=== PATIENT | male | born 1950 | race Caucasian/White ===

== ENCOUNTER 2016-09-02 15:41 | Observation (INO) | payer MEDICARE, OTHER ==
[2016-09-02] VITALS (7 sets, daily range): BP systolic 111–139; BP diastolic 66–83; PULSE 74–85; RESP 16–20; TEMP 98–98.1; O2SAT 96–99
[~2016-09-02] VITALS: Ht 182.9 cm; Wt 90.0 kg
--- NOTE | 2016-09-02 15:48 | PD ---
HPI Chief Complaint: Syncope/Near-Syncope Time Seen by Provider: 15:48 Travel History International Travel<30 days: No Contact w/Intl Traveler<30days: No Traveled to known affect area: No History of Present Illness HPI 66-year-old male with no significant medical history presents to the emergency department for evaluation. Patient states he is visiting from [place]. He was fishing with his brother when he developed a feeling of nauseousness then states he did not feel well and became agitated. He asked his brother to take him back to where they're staying and in the car he passed out. He did not strike his head. Patient states he has had nothing ever like this in the past. Denies any recent illnesses, fever, or chills. No chest pain or tightness. No difficulty breathing. Currently he states he feels much better. He has no cardiac history. He was fishing since 11 AM and a dark long sleeve shirt with minimal water intake. He has no other symptoms to report this time. [facility] Past Medical History Medical History: Denies Significant Hx Social History Alcohol Use: No Tobacco Use: No Substance Use: No Allergies-Medications (Allergen,Severity, Reaction): Coded Allergies: No Known Allergies (Unverified , 09/02/16) Review of Systems Except as stated in HPI: all other systems reviewed are Neg Physical Exam Narrative GENERAL: Well-nourished male patient, sitting up in the stretcher, in no acute distress SKIN: Warm and dry. HEAD: Atraumatic. Normocephalic. EYES: Pupils equal and round. No scleral icterus. No injection or drainage. ENT: No nasal bleeding or discharge. Mucous membranes pink and moist. NECK: Trachea midline. No JVD. CARDIOVASCULAR: Regular rate and rhythm. No murmur appreciated. RESPIRATORY: No accessory muscle use. Clear to auscultation. Breath sounds equal bilaterally. GASTROINTESTINAL: Abdomen soft, non-tender, nondistended. Hepatic and splenic margins not palpable. MUSCULOSKELETAL: No obvious deformities. No clubbing. No cyanosis. No edema. NEUROLOGICAL: Awake and alert. No obvious cranial nerve deficits. Motor grossly within normal limits. Normal speech. PSYCHIATRIC: Appropriate mood and affect; insight and judgment normal. Data Data Last Documented VS Vital Signs Date Time Temp Pulse Resp B/P Pulse Ox O2 Delivery O2 Flow Rate FiO2 09/02/16 17:00 76 17 119/66 96 Room Air 09/02/16 15:46 98.0 Orders Electrocardiogram (09/02/16 15:47) Ckmb (Isoenzyme) Profile (09/02/16 15:47) Complete Blood Count With Diff (09/02/16 15:47) Comprehensive Metabolic Panel (09/02/16 15:47) Magnesium (Mg) (09/02/16 15:47) Prothrombin Time / Inr (Pt) (09/02/16 15:47) Act Partial Throm Time (Ptt) (09/02/16 15:47) Troponin I (09/02/16 15:47) Lipase (09/02/16 15:47) Chest, Single Ap (09/02/16 15:47) Ecg Monitoring (09/02/16 15:47) Bilateral Bp Monitoring (09/02/16 15:47) Iv Access Insert/Monitor (09/02/16 15:47) Oximetry (09/02/16 15:47) Oxygen Administration (09/02/16 15:47) Aspirin Chew (Aspirin Chew) (09/02/16 16:00) Sodium Chloride 0.9% Flush (Ns Flush) (09/02/16 16:00) Ct Brain W/O Iv Contrast(Rout) (09/02/16 ) CKMB (09/02/16 15:45) CKMB% (09/02/16 15:45) Admit Order (Ed Use Only) (09/02/16 17:53) Labs Laboratory Tests Test 09/02/16 15:45 White Blood Count 4.9 TH/MM3 Red Blood Count 4.30 MIL/MM3 Hemoglobin 12.5 GM/DL Hematocrit 36.8 % Mean Corpuscular Volume 85.7 FL Mean Corpuscular Hemoglobin 29.0 PG Mean Corpuscular Hemoglobin 33.8 % Concent Red Cell Distribution Width 12.9 % Platelet Count 196 TH/MM3 Mean Platelet Volume 8.7 FL Neutrophils (%) (Auto) 52.6 % Lymphocytes (%) (Auto) 33.8 % Monocytes (%) (Auto) 10.0 % Eosinophils (%) (Auto) 2.8 % Basophils (%) (Auto) 0.8 % Neutrophils # (Auto) 2.6 TH/MM3 Lymphocytes # (Auto) 1.7 TH/MM3 Monocytes # (Auto) 0.5 TH/MM3 Eosinophils # (Auto) 0.1 TH/MM3 Basophils # (Auto) 0.0 TH/MM3 CBC Comment DIFF FINAL Differential Comment Prothrombin Time 10.4 SEC Prothromb Time International 0.9 RATIO Ratio Activated Partial 19.6 SEC Thromboplast Time Sodium Level 133 MEQ/L Potassium Level 3.9 MEQ/L Chloride Level 102 MEQ/L Carbon Dioxide Level 21.7 MEQ/L Anion Gap 9 MEQ/L Blood Urea Nitrogen 20 MG/DL Creatinine 0.94 MG/DL Estimat Glomerular Filtration 80 ML/MIN Rate Random Glucose 125 MG/DL Calcium Level 7.9 MG/DL Magnesium Level 2.0 MG/DL Total Bilirubin 0.3 MG/DL Aspartate Amino Transf 30 U/L (AST/SGOT) Alanine Aminotransferase 56 U/L (ALT/SGPT) Alkaline Phosphatase 65 U/L Total Creatine Kinase 133 U/L Creatine Kinase MB 1.3 NG/ML Troponin I LESS THAN 0.02 NG/ML Total Protein 6.3 GM/DL Albumin 3.3 GM/DL Lipase 183 U/L MDM Medical Decision Making Medical Screen Exam Complete: Yes Emergency Medical Condition: Yes Medical Record Reviewed: Yes Differential Diagnosis Heat stroke versus ACS versus electrolyte abnormality versus dehydration versus syncope versus near-syncope Narrative Course 66-year-old male presents to the emergency department for evaluation. Patient appears without distress. EKG is NSR without ST elevation or depression; reviewed by my attending physician. Patient is pain free and symptom free at this time. CBC is with mild anemia 12.5, otherwise without acute concern. BMP is with mild hyponatremia 133. BUN is 20. Troponin is less than 0.02. Last Impressions Chest X-Ray 09/02/16 1547 Signed Impressions: Service Date/Time: Friday, September 02, 2016 16:07 - CONCLUSION: Minimal left basilar atelectatic changes. Lungs are otherwise clear. Jaime Gutierrez MD Head CT 09/02/16 0000 Signed Impressions: Service Date/Time: Friday, September 02, 2016 16:59 - CONCLUSION: 1. Minimal periventricular small vessel ischemic demyelination. 2. Otherwise negative. Jaime Gutierrez MD I discussed the findings with the patient. I have also discussed him with my attending physician Dr. Montero who agrees with observation admission for further evaluation a syncopal workup. I discussed the patient Dr. Irvin. Patient will be admitted to observation to [facility] service. Diagnosis Primary Impression: Syncope Qualified Code: R55 - Syncope, unspecified syncope type Admitting Information Admitting Physician Requests: Observation Condition: Stable Frances Medina Sep 02, 2016 15:48
[2016-09-02] MEDS ORDERED: ASPIRIN 81 MG CHEW TAB PO ONE (16:00)
[2016-09-02] MEDS ORDERED: SODIUM CHLORIDE 0.9% FLUSH 10 ML FLUSH IVF PRN (16:00)
--- NOTE | 2016-09-02 16:13 | RADRPT ---
EXAM DATE/TIME: 09/02/2016 16:07 [facility] COMPARISON: No previous studies available for comparison. INDICATIONS : Chest pain. MEDICAL HISTORY : None. SURGICAL HISTORY : None. ENCOUNTER: Initial ACUITY: 1 day PAIN SCORE: 3/10 LOCATION: Bilateral chest FINDINGS: A single view of the chest demonstrates the lungs to be symmetrically aerated without evidence of mas s, infiltrate or effusion. Minimal atelectasis of the left hemidiaphragm. The cardiomediastinal cont ours are unremarkable. Osseous structures are intact. CONCLUSION: Minimal left basilar atelectatic changes. Lungs are otherwise clear. Jaime Gutierrez MD on September 02, 2016 at 16:11 Board Certified Radiologist. This report was verified electronically.
[2016-09-02 16:19] LABS: AUTOMATED NEUTROPHIL # 2.6 TH/MM3 (1.8-7.7); BASOPHIL % 0.8 % (0.0-2.0); EOSINOPHIL # 0.1 TH/MM3 (0-0.4); EOSINOPHIL % 2.8 % (0.0-4.0); HEMATOCRIT 36.8 % (39.0-51.0); HEMO FLAGS DIFF FINAL; LYMPH % 33.8 % (9.0-44.0); LYMPHOCYTE # 1.7 TH/MM3 (1.0-4.8); MEAN CELL VOLUME 85.7 FL (80.0-100.0); MEAN CORPUSCULAR HGB CONC 33.8 % (32.0-36.0); NEUT % 52.6 % (16.0-70.0); PLATELET COUNT 196 TH/MM3 (150-450); RED CELL DISTRIBUTION WIDTH 12.9 % (11.6-17.2); WHITE BLOOD COUNT 4.9 TH/MM3 (4.0-11.0)
[2016-09-02 16:30] LABS: ALT (GPT) 56 U/L (12-78); ANION GAP 9 MEQ/L (5-15); AST (GOT) 30 U/L (15-37); BICARBONATE 21.7 MEQ/L (21.0-32.0); BLOOD UREA NITROGEN 20 MG/DL (7-18); CHLORIDE 102 MEQ/L (98-107); GLOMERULAR FILTRATION RATE 80 ML/MIN (>89); POTASSIUM 3.9 MEQ/L (3.5-5.1); SODIUM (NA) 133 MEQ/L (136-145)
[2016-09-02 16:34] LABS: ALKALINE PHOSPHATASE 65 U/L (45-117); CREATINE KINASE 133 U/L (39-308); TOTAL BILIRUBIN ADULT 0.3 MG/DL (0.2-1.0)
[2016-09-02 16:38] LABS: APTT (PATIENT) 19.6 SEC (24.3-30.1); INTERNATIONAL NORMALIZED RATIO 0.9 RATIO; PROTHROMBIN TIME - PATIENT 10.4 SEC (9.8-11.6)
[2016-09-02 16:46] LABS: CKMB 1.3 NG/ML (0.5-3.6)
--- NOTE | 2016-09-02 17:30 | RADRPT ---
EXAM DATE/TIME: 09/02/2016 16:59 [facility] COMPARISON: No previous studies available for comparison. INDICATIONS : Syncopal episode today. RADIATION DOSE: 44.77 CTDIvol (mGy) MEDICAL HISTORY : None SURGICAL HISTORY : None. ENCOUNTER: Initial ACUITY: 1 day PAIN SCALE: 0/10 LOCATION: cranial TECHNIQUE: Multiple contiguous axial images were obtained of the head. Using automated exposure control and adj ustment of the mA and/or kV according to patient size, radiation dose was kept as low as reasonably a chievable to obtain optimal diagnostic quality images. FINDINGS: CEREBRUM: The ventricles are normal for age. Minimal periventricular small vessel ischemic demyelination predo minantly around the frontal horns of the lateral ventricles. No evidence of midline shift, mass lesio n, hemorrhage or acute infarction. No extra-axial fluid collections are seen. POSTERIOR FOSSA: The cerebellum and brainstem are intact. The 4th ventricle is midline. The cerebellopontine angle i s unremarkable. EXTRACRANIAL: The visualized portion of the orbits is intact. SKULL: The calvaria is intact. No evidence of skull fracture. CONCLUSION: 1. Minimal periventricular small vessel ischemic demyelination. 2. Otherwise negative. Jaime Gutierrez MD on September 02, 2016 at 17:28 Board Certified Radiologist. This report was verified electronically.
[2016-09-02] MEDS ORDERED: MAGNESIUM HYDROXIDE SUSP 30 ML CUP PO PRN (18:00)
[2016-09-02] MEDS ORDERED: SODIUM CHLORIDE 0.9% FLUSH 10 ML FLUSH IV FLUSH PRN (18:00)
[2016-09-02] MEDS ORDERED: NALOXONE HCL 0.4 MG/ML AMP IV PRN (18:00)
[2016-09-02] MEDS ORDERED: ACETAMINOPHEN 325 MG TAB PO PRN (18:00)
[2016-09-02] MEDS ORDERED: ONDANSETRON HCL 4 MG/2 ML VIAL IVP PRN (18:00)
[2016-09-02] MEDS: SODIUM CHLOR 0.9% 1000 ML INJ 1,000 ML IV SCH (18:11)
--- NOTE | 2016-09-02 18:32 | HHI.HP ---
[facility] Ad[facility] Diagnosis Syncope Diagnoses: Chief Complaint: Syncope Travel History International Travel<30 Days: No Contact w/Intl Traveler <30 Da: No Traveled to Known Affected Are: No History of Present Illness Patient is a 66-year-old white male with no significant past medical history who came in to the hospital for evaluation after episode of "passing out." Patient states that they were visiting from [place]. At 11:00 this morning they went to the beach and was fishing with his brother. At around, 4PM states that he felt tired, and his stomach felt "queasy", he decided to go back to the car, his brother followed him back and noted that he passed out. As per his brother, he did not hit his head, approximately passed out for 30 seconds. He woke up and EMS noted he was sweating. During the time that the patient was tired and complaining of an upset stomach, he denies any nausea or vomiting. He denies any chest pain, palpitations. He is just reporting that he is tired. Denies taking any alcohol, states he's been drinking water. Patient also states that he is currently taking antibiotics for sinus infection. He does not remember the name of the antibiotic but it sounds like either azithromycin or Augmentin. States he is mcc through with that, he is to complete for 10 days, he started taking it last Wednesday. On exam, patient states he feels a lot better. Denies pain and discomfort. Denies SOB/ dyspnea. Denies chest pain, palpitations, headaches, dizziness. Denies fevers, chills, n/v/d. Labs reviewed. Mild normocytic normochromic anemia hemoglobin 12.5/hematocrit 36.8, RBC 4.30. CMP showed hyponatremia sodium 133, BUN 20, EGFR 80, glucose 125, calcium 7.9. First troponin less than 0.02. Total protein 6.3, albumin 3.3. Chest x-ray showed minimal left basilar atelectatic changes. Lungs are otherwise clear. CT of the head showed minimal periventricular small vessel ischemic demyelination. Otherwise negative. Review of Systems Except as stated in HPI: all other systems reviewed are Neg Past Family Social History Past Medical History None Past Surgical History Appendectomy Hernia repair Reported Medications None Allergies: Coded Allergies: No Known Allergies (Unverified , 09/02/16) Active Ordered Medications Current Medications Medications (Trade) Dose Ordered Sig/Slade Route Start Time Stop Time Status Last Admin Sodium Chloride 2 ml 2 ml UNSCH PRN IVF 09/02/16 16:00 09/02/16 16:13 (NS 1000 ml Inj) 1,000 ml @ 100 mls/hr Q10H IV 09/02/16 17:54 (NS Flush) 2 ml UNSCH PRN IV FLUSH 09/02/16 18:00 (NS Flush) 2 ml BID IV FLUSH 09/02/16 21:00 (Tylenol) 650 mg Q4H PRN PO 09/02/16 18:00 (Zofran Inj) 4 mg Q6H PRN IVP 09/02/16 18:00 (Milk Of Magnesia Liq) 30 ml Q12H PRN PO 09/02/16 18:00 (Narcan Inj) 0.4 mg UNSCH PRN IV 09/02/16 18:00 Family History Denies any significant family medical history Social History Denies alcohol use Denies tobacco use Denies illicit drug use Physical Exam Vital Signs Vital Signs Date Time Temp Pulse Resp B/P Pulse Ox O2 Delivery O2 Flow Rate FiO2 09/02/16 17:00 76 17 119/66 96 Room Air 09/02/16 16:05 16 98 Room Air 09/02/16 16:04 16 99 Room Air 09/02/16 16:04 Room Air 09/02/16 16:00 82 20 129/77 96 Room Air 09/02/16 15:46 98.0 85 16 125/74 96 Physical Exam GENERAL: This is a well-nourished, well-developed patient, in no apparent distress. SKIN: No rashes, ecchymoses or lesions. Cool and dry. HEAD: Atraumatic. Normocephalic. No temporal or scalp tenderness. EYES: Pupils equal round and reactive. Extraocular motions intact. No scleral icterus. No injection or drainage. ENT: Nose without bleeding. Throat without erythema. Uvula midline. Airway patent. NECK: Trachea midline. No JVD or lymphadenopathy. Supple, nontender, no meningeal signs. CARDIOVASCULAR: Regular rate and rhythm without murmurs, gallops, or rubs. RESPIRATORY: Clear to auscultation. Breath sounds equal bilaterally. No wheezes , rales, or rhonchi. GASTROINTESTINAL: Abdomen soft, non-tender, nondistended. BS active x4. MUSCULOSKELETAL: Extremities without clubbing, cyanosis, or edema. NEUROLOGICAL: Awake and alert. Motor and sensory grossly within normal limits. Normal speech. Laboratory Laboratory Tests Test 09/02/16 15:45 White Blood Count 4.9 Red Blood Count 4.30 Hemoglobin 12.5 Hematocrit 36.8 Mean Corpuscular Volume 85.7 Mean Corpuscular Hemoglobin 29.0 Mean Corpuscular Hemoglobin 33.8 Concent Red Cell Distribution Width 12.9 Platelet Count 196 Mean Platelet Volume 8.7 Neutrophils (%) (Auto) 52.6 Lymphocytes (%) (Auto) 33.8 Monocytes (%) (Auto) 10.0 Eosinophils (%) (Auto) 2.8 Basophils (%) (Auto) 0.8 Neutrophils # (Auto) 2.6 Lymphocytes # (Auto) 1.7 Monocytes # (Auto) 0.5 Eosinophils # (Auto) 0.1 Basophils # (Auto) 0.0 CBC Comment DIFF FINAL Differential Comment Prothrombin Time 10.4 Prothromb Time International 0.9 Ratio Activated Partial 19.6 Thromboplast Time Sodium Level 133 Potassium Level 3.9 Chloride Level 102 Carbon Dioxide Level 21.7 Anion Gap 9 Blood Urea Nitrogen 20 Creatinine 0.94 Estimat Glomerular Filtration 80 Rate Random Glucose 125 Calcium Level 7.9 Magnesium Level 2.0 Total Bilirubin 0.3 Aspartate Amino Transf 30 (AST/SGOT) Alanine Aminotransferase 56 (ALT/SGPT) Alkaline Phosphatase 65 Total Creatine Kinase 133 Creatine Kinase MB 1.3 Troponin I LESS THAN 0.02 Total Protein 6.3 Albumin 3.3 Lipase 183 Result Diagram: 09/02/16 1545 09/02/16 1545 Imaging Last Impressions Chest X-Ray 09/02/16 1547 Signed Impressions: Service Date/Time: Friday, September 02, 2016 16:07 - CONCLUSION: Minimal left basilar atelectatic changes. Lungs are otherwise clear. Jaime Gutierrez MD Head CT 09/02/16 0000 Signed Impressions: Service Date/Time: Friday, September 02, 2016 16:59 - CONCLUSION: 1. Minimal periventricular small vessel ischemic demyelination. 2. Otherwise negative. Jaime Gutierrez MD Assessment and Plan Problem List: (1) Syncope ICD Code: R55 Status: Acute Assessment and Plan Patient is a 66-year-old white male with no significant past medical history who came in to the hospital for evaluation after episode of "passing out." Patient states that they were visiting from [place]. At 11:00 this morning they went to the beach and was fishing with his brother. At around, 4PM states that he felt tired, and his stomach felt "queasy", he decided to go back to the car, his brother followed him back and noted that he passed out. As per his brother, he did not hit his head, approximately passed out for 30 seconds. He woke up and EMS noted he was sweating. During the time that the patient was tired and complaining of an upset stomach, he denies any nausea or vomiting. He denies any chest pain, palpitations. He is just reporting that he is tired. Denies taking any alcohol, states he's been drinking water. Patient also states that he is currently taking antibiotics for sinus infection. He does not remember the name of the antibiotic but it sounds like either azithromycin or Augmentin. States he is mcc through with that, he is to complete for 10 days, he started taking it last Wednesday. Syncope R/O ACS - EKG reviewed negative for QT prolongation, sinus rhythm heart rate 81 - Chest x-ray showed minimal left basilar atelectatic changes. Lungs are otherwise clear. - CT of the head showed minimal periventricular small vessel ischemic demyelination. Otherwise negative. - Check serial troponin - Check serial EKG - Check carotid ultrasound - Check orthostatic BP - Telemetry use - Echo cardiogram ordered - Will consult departmental secretary if syncopal episode recurrence during hospitalization - Risk for fall. Normocytic normochromic anemia - Monitor H&H Hyponatremia Mild Dehydration - Repeat BMP tomorrow - IV Fluid NS 100ML/ Hr DVT prop SCDs Written by Sandhya Andres, acting as scribe for Dr. Irvin on 09/02/16 at 18:31. All or portions of this note were transcribed by FABY Gregory . I, Dr. Pan Irvin personally performed the history, physical exam, and medical decision making; and confirmed the accuracy of the information in the transcribed note. Authenticated by Dr. Pan Irvin on 09/03/16 at 00:24. Code Status Full code Discussed Condition With Patient, brother, nursing, ED attending Problem Qualifiers (1) Syncope: Qualified Code: R55 - Syncope, unspecified syncope type Sandhya De La Paz Sep 02, 2016 18:32 Allie Irvin DO Sep 03, 2016 00:25
--- NOTE | 2016-09-02 20:19 | RADRPT ---
EXAM DATE/TIME: 09/02/2016 19:14 [facility] COMPARISON: No previous studies available for comparison. INDICATIONS : Syncope. MEDICAL HISTORY : Nausea. SURGICAL HISTORY : Appendectomy. Hernia repair. ENCOUNTER: Initial ACUITY: 1 day PAIN SCORE: 0/10 LOCATION: Bilateral neck PEAK SYSTOLIC VELOCITIES (cm/sec): ICA/CCA RATIO: Right: 0.9 Left: 1.1 ICA: Right: 88 Left: 102 CCA: Right: 94 Left: 92 ECA: Right: 87 Left: 94 VERTEBRAL: Right: 67 antegrade Left: 61 antegrade Elevated flow velocities and ICA/CCA ratios have been found to correlate with increased degrees of vessel stenosis, calculated as percentage of diameter relative to a normal segment of distal ICA/CCA FINDINGS: Antegrade flow is seen in both vertebral arteries. There is mild atherosclerotic plaquing at the orig in of both ICAs without any significant stenosis. CONCLUSION: No evidence for hemodynamically significant stenosis. Genoveva Hayes MD on September 02, 2016 at 20:17 Board Certified Radiologist. This report was verified electronically.
[2016-09-02] MEDS: SODIUM CHLORIDE 0.9% FLUSH 10 ML FLUSH IV FLUSH SCH (21:00)
[2016-09-03] MEDS: SODIUM CHLOR 0.9% 1000 ML INJ 1,000 ML IV SCH ×2 (03:37→13:54)
[2016-09-03 04:54] VITALS: BP 133/77; PULSE 81; RESP 18; TEMP 97.8; O2SAT 97
[2016-09-03 06:13] LABS: AUTOMATED NEUTROPHIL # 2.1 TH/MM3 (1.8-7.7); BASOPHIL % 0.6 % (0.0-2.0); EOSINOPHIL # 0.3 TH/MM3 (0-0.4); EOSINOPHIL % 5.4 % (0.0-4.0); HEMATOCRIT 36.8 % (39.0-51.0); HEMO FLAGS DIFF FINAL; LYMPH % 35.9 % (9.0-44.0); LYMPHOCYTE # 1.7 TH/MM3 (1.0-4.8); MEAN CELL VOLUME 85.8 FL (80.0-100.0); MEAN CORPUSCULAR HEMOGLOBIN 29.1 PG (27.0-34.0); MEAN CORPUSCULAR HGB CONC 33.9 % (32.0-36.0); MONO % 14.2 % (0.0-8.0); NEUT % 43.9 % (16.0-70.0); PLATELET COUNT 186 TH/MM3 (150-450); RED BLOOD COUNT 4.29 MIL/MM3 (4.50-5.90); RED CELL DISTRIBUTION WIDTH 12.9 % (11.6-17.2); WHITE BLOOD COUNT 4.9 TH/MM3 (4.0-11.0)
[2016-09-03 06:33] LABS: BICARBONATE 25.7 MEQ/L (21.0-32.0); POTASSIUM 4.4 MEQ/L (3.5-5.1)
[2016-09-03 07:14] VITALS: BP 132/77; PULSE 76; RESP 17; TEMP 96.4; O2SAT 96
[2016-09-03 08:18] VITALS: BP_SYST 145; BP_SYST 150; BP_DIAS 87; BP_DIAS 89
[2016-09-03 08:30] VITALS: PULSE 69
[2016-09-03] MEDS: SODIUM CHLORIDE 0.9% FLUSH 10 ML FLUSH IV FLUSH SCH (08:44)
[2016-09-03] MEDS ORDERED: INFLUENZA VIRUS VACCINE (QUADRIVALENT) 0.5 ML SYR IM ONE (10:00)
[2016-09-03] MEDS ORDERED: PNEUMOCOCCAL POLYVALENT INJ 25 MCG/0.5 ML SYR IM ONE (10:00)
--- NOTE | 2016-09-03 10:40 | HHI.PR ---
Subjective Remarks Follow up for syncope. The patient reports feeling back to normal today. He denies any medical complaints including no lightheadedness, dizziness, headache , chest pain, shortness of breath, or abdominal complaints. He's tolerating oral intake. Urinating well. Awaiting echo results. Objective Vitals Vital Signs Date Time Temp Pulse Resp B/P Pulse Ox O2 Delivery O2 Flow Rate FiO2 09/03/16 08:18 145/89 150/87 09/03/16 07:14 96.4 76 17 132/77 96 09/03/16 04:54 97.8 81 18 133/77 97 09/02/16 23:51 98.1 84 18 139/83 97 09/02/16 23:30 74 09/02/16 19:00 74 17 111/67 98 Room Air 09/02/16 17:00 76 17 119/66 96 Room Air 09/02/16 16:05 16 98 Room Air 09/02/16 16:04 16 99 Room Air 09/02/16 16:04 Room Air 09/02/16 16:00 82 20 129/77 96 Room Air 09/02/16 15:46 98.0 85 16 125/74 96 I/O 09/02/16 09/02/16 09/02/16 09/03/16 09/03/16 09/03/16 07:00 15:00 23:00 07:00 15:00 23:00 Intake Total 915 ml Output Total 800 ml Balance 115 ml Intake IV Total 915 ml Output Urine Total 800 ml Result Diagram: 09/03/16 0455 09/03/16 0455 Imaging Last Impressions Chest X-Ray 09/02/16 1547 Signed Impressions: Service Date/Time: Friday, September 02, 2016 16:07 - CONCLUSION: Minimal left basilar atelectatic changes. Lungs are otherwise clear. Jaime Gutierrez MD Head CT 09/02/16 0000 Signed Impressions: Service Date/Time: Friday, September 02, 2016 16:59 - CONCLUSION: 1. Minimal periventricular small vessel ischemic demyelination. 2. Otherwise negative. Jaime Gutierrez MD Carotid Artery Ultrasound 09/02/16 0000 Signed Impressions: Service Date/Time: Friday, September 02, 2016 19:14 - CONCLUSION: No evidence for hemodynamically significant stenosis. Genoveva Hayes MD Objective Remarks GENERAL: Well-developed, well-nourished male patient in NAD. Standing at bedside. SKIN: Warm and dry. HEAD: Atraumatic. Normocephalic. EYES: Pupils equal and round. No scleral icterus. No injection or drainage. ENT: No nasal bleeding or discharge. Mucous membranes pink and moist. NECK: Trachea midline. CARDIOVASCULAR: Regular rate and rhythm. No murmur appreciated. RESPIRATORY: No accessory muscle use. Clear to auscultation. Breath sounds equal bilaterally. GASTROINTESTINAL: Abdomen soft, non-tender, nondistended. Hepatic and splenic margins not palpable. MUSCULOSKELETAL: Extremities without clubbing, cyanosis, or edema. No obvious deformities. NEUROLOGICAL: Awake and alert. No obvious cranial nerve deficits. Motor grossly within normal limits. 5/5 muscle strength in the arms and legs. Normal speech. PSYCHIATRIC: Appropriate mood and affect; insight and judgment normal. Medications and IVs Current Medications Medications (Trade) Dose Ordered Sig/Slade Route Start Time Stop Time Status Last Admin (NS 1000 ml Inj) 1,000 ml @ 100 mls/hr Q10H IV 09/02/16 17:54 09/03/16 03:37 (NS Flush) 2 ml UNSCH PRN IV FLUSH 09/02/16 18:00 (NS Flush) 2 ml BID IV FLUSH 09/02/16 21:00 (Tylenol) 650 mg Q4H PRN PO 09/02/16 18:00 (Zofran Inj) 4 mg Q6H PRN IVP 09/02/16 18:00 (Milk Of Magnesia Liq) 30 ml Q12H PRN PO 09/02/16 18:00 (Narcan Inj) 0.4 mg UNSCH PRN IV 09/02/16 18:00 Urinary Catheter: No Vascular Central Line Catheter: No A/P Problem List: (1) Syncope ICD Code: R55 Status: Acute Assessment and Plan 66-year-old white male with no significant past medical history who came in to the hospital for evaluation after episode of "passing out." Patient states that they were visiting from [place]. Syncope R/O ACS - EKG reviewed negative for QT prolongation, sinus rhythm heart rate 81, reviewed by me - Chest x-ray reviewed by me, showed minimal left basilar atelectatic changes. Lungs are otherwise clear. - CT of the head showed minimal periventricular small vessel ischemic demyelination. Otherwise negative. - ACS ruled out with negative serial cardiac enzymes and EKGs - Carotid ultrasound unremarkable - Orthostatic BP negative - Telemetry use - Echo cardiogram ordered - Will consult iv therapy nurse if syncopal episode recurrence during hospitalization - Risk for fall. Normocytic normochromic anemia - Monitor H&H Hyponatremia Mild Dehydration - Repeat BMP tomorrow - IV Fluid NS 100ML/ Hr DVT prop SCDs Written by Melonie Snyder, acting as scribe for Dr. Thompson on 09/03/16 at 10:39. All or portions of this note were transcribed by scribe Melonie Snyder. I, Dr. Carli Thompson personally performed the history, physical exam, and medical decision making; and confirmed the accuracy of the information in the transcribed note. Authenticated by Dr. Carli Thompson on 09/03/16 at 12:41. Problem Qualifiers (1) Syncope: Qualified Code: R55 - Syncope, unspecified syncope type Melonie Snyder PA-C Sep 03, 2016 10:40 Carli Thompson MD Sep 03, 2016 12:42
--- NOTE | 2016-09-03 13:25 | HHI.DCPOC ---
Discharge Care Plan Diagnosis: (1) Syncope (2) Dehydration Goals to Promote Your Health * To prevent worsening of your condition and complications * To maintain your health at the optimal level Directions to Meet Your Goals Take your medications as prescribed Follow your dietary instruction Follow activity as directed Keep your appointments as scheduled Take your immunizations and boosters as scheduled If your symptoms worsen call your PCP, if no PCP go to Urgent Care Center or Emergency Room Smoking is Dangerous to Your Health. Avoid second hand smoke Call the 24-hour hour crisis hotline for domestic abuse at Melonie Snyder PA-C Sep 03, 2016 13:25 Carli Thompson MD Sep 03, 2016 20:51
--- NOTE | 2016-09-03 14:39 | EKG ---
Date Performed: 09/03/2016 Time Performed: 01:15:59 PTAGE: 66 years EKG: Sinus rhythm POSSIBLE RIGHT VENTRICULAR CONDUCTION DELAY BORDERLINE ECG Compared to prior tracing no significant change PREVIOUS TRACING : 09/02/2016 18.41 DOCTOR: Stefan Donald Interpretating Date/Time 09/03/2016 14:37:25
--- NOTE | 2016-09-03 14:39 | EKG ---
Date Performed: 09/02/2016 Time Performed: 18:41:34 PTAGE: 66 years EKG: Sinus rhythm POSSIBLE RIGHT VENTRICULAR CONDUCTION DELAY BORDERLINE ECG Compared to prior tracing no significant change PREVIOUS TRACING : 09/02/2016 16.00 DOCTOR: Stefan Donald Interpretating Date/Time 09/03/2016 14:37:17
--- NOTE | 2016-09-03 14:39 | EKG ---
Date Performed: 09/02/2016 Time Performed: 16:00:26 PTAGE: 66 years EKG: Sinus rhythm POSSIBLE RIGHT VENTRICULAR CONDUCTION DELAY BORDERLINE ECG NO PREVIOUS TRACING DOCTOR: Stefan Donald Interpretating Date/Time 09/03/2016 14:37:06
[2016-09-03 16:10] VITALS: BP 128/73; PULSE 76; RESP 18; TEMP 96.6; O2SAT 100
--- NOTE | 2016-09-03 17:44 | EC ---
Study Study Date:09/03/2016 STUDY CONCLUSIONS SUMMARY LEFT VENTRICLE: The cavity size was normal. Wall thickness was increased in a pattern of mild LVH. There was concentric hypertrophy. Systolic function was normal. The estimated ejection fraction was in the range of 55% to 60%. Wall motion was normal; there were no regional wall motion abnormalities. If LV function is below 40, please consider prescribing an ACEI or ARB or document rationale for non-use. PROCEDURE DATA STUDY STATUS: Elective. Procedure: Transthoracic echocardiography. Image quality was good. Scanning was performed from the parasternal, apical, and subcostal acoustic windows. Study completion: The patient tolerated the procedure well. Transthoracic echocardiography. M-mode, complete 2D, complete spectral Doppler, and color Doppler. Patient status: Inpatient. CARDIAC ANATOMY LEFT VENTRICLE: The cavity size was normal. Wall thickness was increased in a pattern of mild LVH. There was concentric hypertrophy. Systolic function was normal. The estimated ejection fraction was in the range of 55% to 60%. Wall motion was normal; there were no regional wall motion abnormalities. AORTIC VALVE: The valve appears to be grossly normal. Probably trileaflet. Doppler: There was no stenosis. No significant regurgitation. MITRAL VALVE: The valve appears to be grossly normal. Doppler: There was no evidence for stenosis. Trace regurgitation. Peak gradient: 2mm Hg (D). LEFT ATRIUM: The atrium was normal in size. ATRIAL SEPTUM: Poorly visualized. RIGHT VENTRICLE: The cavity size was normal. Systolic function was normal. PULMONIC VALVE: Not well visualized. Doppler: There was no evidence for stenosis. No significant regurgitation. TRICUSPID VALVE: The valve appears to be grossly normal. Doppler: There was no evidence for stenosis. Trace regurgitation. PERICARDIUM: There was no pericardial effusion. BASIC MEASUREMENTS ADULT Normal Left ventricle LV internal dimension, ED, chordal level, *39.7 mm 43-52 PLAX LV internal dimension, ES, chordal level, 28.7 mm 23-38 PLAX Fractional shortening, chordal level, PLAX *28 % >29 LV posterior wall thickness, ED 12 mm IVS/LVPW ratio, ED 1.13 <1.3 Ventricular septum Septal thickness, ED 13.5 mm Aortic valve Leaflet separation 21 mm 15-26 Right ventricle RV internal dimension, ED, PLAX 24.9 mm 19-38 BASIC MEASUREMENTS ADULT Normal Aortic valve Leaflet separation 21 mm 15-26 Aorta Root diameter, ED 33 mm 20-37 Left atrium Anterior-posterior dimension, ES 34 mm 19-40 LA/aortic root ratio 1.03 DOPPLER MEASUREMENTS ADULT Normal Main pulmonary artery Pressure, S *40 mm Hg =30 Mitral valve Peak E-wave velocity 78.5 cm/s Peak A-wave velocity 75.5 cm/s Peak gradient, D 2 mm Hg Peak E/A ratio 1 Tricuspid valve Regurgitant peak velocity 276 cm/s Peak RV-RA gradient, S 30 mm Hg Systemic veins Estimated CVP 10 mm Hg Right ventricle RV pressure, S *40 mm Hg <30 LEGEND: Mean values are shown as u=mean value. Asterisk (*) hamilton values outside specified normal range. Prepared and signed by Nash Law [id number]
== END 2016-09-03 18:25 | disposition home or self-care (01) ==
LOC: NEPE 15:41 → NEDH 17:55 → NEPFCDU 23:28
PROVIDERS: ADMIT Hospitalist; ATTEND Hospitalist
DX: R55 Syncope and collapse (principal); E86.0 Dehydration; E87.1 Hypo-osmolality and hyponatremia; D64.9 Anemia, unspecified; R94.31 Abnormal electrocardiogram [ECG] [EKG]
CPT/HCPCS: 70450; 71010; 80048; 80053; 82550; 82552; 83690; 83735; 84484; 85025; 85610; 85730; 93005; 93306; 93880; 97163; 99285; G0378; G8987; G8988; J7030